=== PATIENT | male | born 1990 | race Hispanic/Latino ===

== ENCOUNTER 2023-10-23 00:57 | Emergency (ER) | payer SELFPAY ==
[2023-10-23 00:59] VITALS: BP 142/90; BMI 28.0
--- NOTE | 2023-10-23 02:05 | ED.SKININJ ---
HPI-Injury
<ALETA Ward - Last Filed: 10/23/23 05:26>
General
Chief Complaint: Eye Problems
Source: patient
Exam Limitations: none
Time Seen by Provider: 10/23/23 01:40
Nursing documentation reviewed up to this point in time: agreed with
Travel History
Have you had any contact with someone who has COVID-19?: No
Do you have any symptoms of coronavirus? Fever > 100 degrees, chills, cough, shortness of breath, sore throat, loss of taste or smell, muscle aches, or headache?: No
History of Present Illness-Injury
Is this injury a work related problem?: No
Initial Injury comments:
33 y/o M presents to ED after injury to eye around 2300. Patient reports he was playing soccer when a soccer ball hit him in his left eye. Patient reports he was dazed but did not lose consciousness. He reports it was a close impact hit about 4-5
feet away from him. Patient is reporting eye swelling, bleeding, redness and reports there is 'something inside my eye'. Patient is reporting blurry vision as well in his left eye. Patient does not wear contacts or glasses. Patient does have
decreased vision but has not seen eye doctor for it yet. Patient denies head injury. He reports mild pain with eye movement. Denies headache.
Review of Systems
<ALETA Ward - Last Filed: 10/23/23 05:26>
Review of Systems
Allergies reviewed?: Yes
All Other Systems: ROS reviewed and negative except as documented in HPI and ROS
Constitutional: Reports no symptoms
EENT: Reports other (blurry vision )
Respiratory: Reports no symptoms
Cardiac: Reports no symptoms
ABD/GI: Reports no symptoms
: Reports no symptoms
Musculoskeletal: Reports no symptoms
Skin: Reports other (swelling)
Neurological: Reports no symptoms
Endocrine: Reports no symptoms
Hematologic/Lymphatic: Reports no symptoms
Psychiatric: Reports no symptoms
Skin Exam
<Jeannine Barron WILIAN - Last Filed: 10/23/23 05:26>
Laceration
Left Upper Eye lid:
Length in cm: 1.5
Orientation: horizontal
Type of Laceration: simple
Any active bleeding?: no active bleeding
Distal skin color and temperature: normal-warm & good color
Phy Exam
<ST SylviaWILIAN - Last Filed: 10/23/23 05:26>
General Physical Exam
General Presentation: well appearing and no apparent distress
General age: appears stated age
General Skin: warm and dry
General Habitus: normal
General Mental: alert
General Hydration: appears well hydrated
Eye Exam
Eye Exam: PERRL, EOMI and other (decreased visual higginbotham in left eye, mild pain with lateral gaze, corneal/conjunctival bleeding noted, moderate erythema and swelling in left eye )
Able to obtain acuity?: Yes
Cardiovascular Exam
Cardiovascular Exam: regular rate/rhythm, no edema, no gallop, no murmur and normal peripheral pulses
Pulmonary Exam
Pulmonary Exam: lungs clear, no respiratory distress, no rales, no crackles and no rhonchi
Skin Exam
Skin Exam: normal color, warm/dry and no rash
Course
<Jeannine Barron WILIAN - Last Filed: 10/23/23 05:26>
Orders/Labs/Results
Orders:
Orders
10/23/23 02:[address] [CT Orbits W/o Iv Contrast] Urgent
Comment:
Reason For Exam: left orbital trauma
10/23/23 03:39
Gentamicin [Genoptic 0.3% Eye Drops] See Dose Instructions OPHTH NOW STA
Tetanus/Diphth/Acelpertussis [Adacel] 0.5 ml IM .ONCE ONE
Vital Signs
Initial and Last Documented VS:
Initial Vital Signs
Temp Pulse Resp BP Pulse Ox
99.1 F 74 18 142/90 96
10/23/23 00:59 10/23/23 00:59 10/23/23 00:59 10/23/23 00:59 10/23/23 00:59
Last Documented Vital Signs
Temp Pulse Resp BP Pulse Ox
98.2 F 61 20 112/76 93
10/23/23 03:17 10/23/23 03:17 10/23/23 03:17 10/23/23 03:17 10/23/23 03:17
<Kamaljit Bowman DO - Last Filed: 10/23/23 04:15>
Orders/Labs/Results
Orders:
Orders
10/23/23 02:[address] [CT Orbits W/o Iv Contrast] Urgent
Comment:
Reason For Exam: left orbital trauma
10/23/23 03:39
Gentamicin [Genoptic 0.3% Eye Drops] See Dose Instructions OPHTH NOW STA
Tetanus/Diphth/Acelpertussis [Adacel] 0.5 ml IM .ONCE ONE
Vital Signs
Initial and Last Documented VS:
Initial Vital Signs
Temp Pulse Resp BP Pulse Ox
99.1 F 74 18 142/90 96
10/23/23 00:59 10/23/23 00:59 10/23/23 00:59 10/23/23 00:59 10/23/23 00:59
Last Documented Vital Signs
Temp Pulse Resp BP Pulse Ox
98.2 F 61 20 112/76 93
10/23/23 03:17 10/23/23 03:17 10/23/23 03:17 10/23/23 03:17 10/23/23 03:17
Procedures
<ALETA Ward - Last Filed: 10/23/23 05:26>
Laceration Closure
Left Upper Eye lid:
Status of Wound: clean
Size of Wound in cm: 1.5
Description of Wound Edges: sharp
Preparation: cleaned with saline
Type of Closure: Dermabond-skin glue
<ALETA Ward - Last Filed: 10/23/23 05:26>
MDM/Problems Addressed
Differential Diagnosis Includes:
Laceration
Orbital fracture
MDM/Problems Addressed:
33 y/o M presents to ED after eye injury. Patient laceration repaired in ED by dermabond. Intraocular pressure measured and slightly elevated due to trauma. Florescence staining shows corneal abrasion. Will give Tetanus shot and discharge home.
<Kamaljit Bowman DO - Last Filed: 10/23/23 04:15>
*Critical Care Note
Total Time (30-74mins, 75-104mins- exclusive of procedures): Not Applicable
<Kamaljit Bowman DO - Last Filed: 10/23/23 04:15>
Patient Management
Social determinants of health affecting care: Living situation and Strong social support
<Kamaljit Bowman DO - Last Filed: 10/23/23 04:15>
Update Note
Update Note:
CT ORBITS
IMPRESSION:
Left periorbital soft tissue swelling. No evidence of globe injury. No retrobulbar hematoma.
No facial fracture.
Case finalized on Oct 23 2023 2:34AM ET
ED Attending Note
<ALETA Ward - Last Filed: 10/23/23 05:26>
-
Portions of this chart may have been created with voice recognition software.� Occasional wrong word or��sound alike� substitutions may have occurred due to the inherent limitations of voice recognition software.
<Kamaljit Bowman DO - Last Filed: 10/23/23 04:15>
ED Attending Note
Patient seen and examined by attending physician: Yes
I performed the substantive portion of visit, reviewed & personally made and approve the management plan that is documented in note by myself or RYAN.: Yes
I performed a history and physical exam of patient and discussed management with resident, I reviewed resident's note and agree with documented findings and plan of care.: Yes
ED Attending Note:
Pleasant 33-year-old male presents with left eye pain after injury. Around 11 PM he was playing indoor soccer when a soccer ball hit him in his left eye. He did not lose consciousness. He was only 4 to 5 feet away from the person who kicked the
ball and accidentally hit him. Patient does report some blurry vision and swelling to his eyelid. He had some bleeding above his eyelashes. Patient does report chronic diminished visual acuity, but has not been to the physician for it. Patient
was seen in conjunction with the PA student. I have reviewed and agree with the history and treatment plan presented. On my independent physical exam, patient is awake, alert, and oriented x3, minimal acute distress. His left eye has some
periorbital swelling and ecchymosis. There is a 1.5 cm linear laceration on the eyelid which is superficial. It runs along the base of the eyelashes. This was repaired with Dermabond. Patient suffered no immediate adverse effects from the
Dermabond. The laceration approximated well. CT scan of the orbits was noted to be normal. Intraocular pressures ranged from 20-26. pH was 6.5, fluorescein exam showed a corneal abrasion. This abrasion was noted in the 12:00 to 1 o'clock
position. No obvious foreign body noted. Patient exhibited good range of motion of the eyeball. Globe is firm.
Plan is follow-up with Ortho, treatment for corneal abrasion. Tetanus shot.
Discharge Plan
Departure
Patient Disposition: Home (Routine Discharge)
Date of Disposition: 10/23/23
Time of Disposition: 03:45
Patient with high blood pressure during this ER visit?: No
Discharge Problem:
Eyelid laceration, Corneal abrasion
Instructions: Corneal Abrasion (DC), Eye Contusion (DC), How to Use Eye Drops, Tdap vaccine
Prescriptions:
New
gentamicin 0.3 % drops
1 drp ophthalmic (eye) Q4H Qty: 5 0RF
Referrals:
Liyah London MD [Active] - Next open appointment
NONE,* [Family Provider] -
Stand Alone Forms: Return to Work
Activity Restrictions/Additional Instructions:
Llame al oftalm�logo indicado para repetir la candy.
Fue un placer conocerle y participar en chavez atenci�n. Esperamos chavez continua curaci�n y bienestar.
Neha las instrucciones de júnior en chavez totalidad. Sin embargo, son para educaci�n general y es posible que no describan chavez diagn�stico exacto al momento del júnior. Se daryl� con usted la informaci�n sobre chavez visita a la nilsa de emergencias y keshawn
condiciones m�dicas junto con la informaci�n de seguimiento adecuada...
Si est� indicado, tome keshawn medicamentos seg�n las instrucciones y lo indicado en la documentaci�n de júnior.
Programe jess candy de seguimiento seg�n las indicaciones. Llame para hacer jess candy
Regrese al departamento de emergencias si CUALQUIER cambio, persistencia o empeoramiento de los s�ntomas. Si alguno de keshawn s�ntomas no mejora, persiste o se vuelve m�s grave dentro de 6 a 12 horas, regrese al departamento de emergencias para recibir
atenci�n adicional.
Regrese al departamento de emergencias si presenta dolor de katiana, dolor o rigidez en el sheela, fiebre superior a 100,4 �F, dolor en el pecho, dificultad para respirar, n�useas persistentes, v�mitos, dificultad para hablar, dificultad para
caminar, entumecimiento/hormigueo, debilidad, signos de infecci�n. o cualquier otro s�ntoma que le preocupe.
Si tiene alguna pregunta o inquietud, no dude en [facility] al [facility] al o enviarme un correo electr�fabi directamente a [email or web address].
Please call the eye doctor listed for a repeat appointment
It was a pleasure meeting you and taking part in your care. We hope for your continued healing and wellness.
Please read discharge instructions in their entirety. However, they are for general education and may not describe your exact diagnosis at discharge. Information on your ER visit and medical conditions were discussed with you along with appropriate
follow up information...
If indicated, please take your medications as instructed and indicated on discharge paperwork.
Please schedule a follow up appointment as directed. Call to schedule an appointment
Please return to the emergency department with ANY change in, persisting, or worsening of symptoms. If any of your symptoms do not improve, or persist, or become more severe within 6-12 hours, please return to the emergency department for further
care.
Please return to the emergency department if you develop a headache, neck pain/stiffness, fever greater than 100.4F, chest pain, shortness of breath, persistent nausea, vomiting, slurred speech, difficulty walking, numbness/tingling, weakness, signs
of infection or any other symptoms that are worrisome to you.
If you have any questions or concerns please do not hesitate to call the Hospital at or E-mail me directly at [email or web address]
Interventions
Interventions:
*Risk Screen - Suicide Last Done: 10/23/23 00:59
*General Assessment Last Done: 10/23/23 00:59
*Neglect/Abuse Screening Last Done: 10/23/23 00:59
ED- Fall Risk Assessment Last Done: 10/23/23 01:18
*ED COVID-19 Vaccine History Last Done: 10/23/23 00:59
*Nursing Disposition Last Done: 10/23/23 04:34
Discharge Date and Time
Discharge Date/Time: 10/23/23 04:36
Print Language: FINNISH
[2023-10-23 03:17] VITALS: BP 112/76
[2023-10-23] MEDS: GENOPTIC 0.3% EYE DROPS 1 DROP OPHTH (03:48)
[2023-10-23] MEDS: ADACEL 0.5 ML IM (03:49)
== END 2023-10-23 04:36 | disposition home or self-care (01) ==
LOC: EMR 00:57
PROVIDERS: EMERGENCY PHYSICIAN Student in an Organized Health Care Education/Training Program
DX: S01.112A Laceration without foreign body of left eyelid and periocular area, initial encounter (principal); S05.02XA Injury of conjunctiva and corneal abrasion without foreign body, left eye, initial encounter; W21.02XA Struck by soccer ball, initial encounter; Y93.66 Activity, soccer
CPT/HCPCS: 99284; 12011; 90471; 70480; 90715